=== PATIENT | female | born 1950 | race Caucasian/White ===

== ENCOUNTER 2017-07-16 10:47 | Outpatient (RCR) | payer MEDICARE ==
[~2017-07-16 10:47] MED LIST: AMLODIPINE BESYL5 MG PO; CARAFATE1 GM/10 ML PO; CEFTIN250 MG PO; DILTIAZEM ER60 MG PO; HYDROCHLOROTHIA25 MG PO; IRON CHEWS15 MG PO; LISINOPRIL20 MG PO; METOPROLOL TART50 MG PO; MORPHINE SULFAT30 M2 PO; PANTOPRAZOLE SO40 MG PO; ZOFRAN ODT4 MG SL
== END 2017-07-20 ==
LOC: PT 10:47
PROVIDERS: ATTEND Family Medicine
DX: M54.5 Low back pain (principal); M53.86 Other specified dorsopathies, lumbar region; R26.2 Difficulty in walking, not elsewhere classified; M62.81 Muscle weakness (generalized); M41.26 Other idiopathic scoliosis, lumbar region
CPT/HCPCS: 97010; 97035 ×2; 97110 ×3; 97140 ×2; 97162; G8978; G8979

== ENCOUNTER 2017-08-13 10:58 | Outpatient (RCR) | payer MEDICARE | END 2017-08-19 | LOC: PT 10:58 | PROVIDERS: ATTEND Family Medicine | DX: M54.5 Low back pain (principal); M53.86 Other specified dorsopathies, lumbar region; M41.26 Other idiopathic scoliosis, lumbar region; R26.2 Difficulty in walking, not elsewhere classified; M62.81 Muscle weakness (generalized) | CPT/HCPCS: 97035 ×3; 97110 ×3; G8978; G8979 ×2; G8980 ==

== ENCOUNTER → 2020-04-21 | Outpatient (CLI) | payer OTHER ==
[~2020-04-21] MED LIST changes: +COVID-19 VACC, MRNA(MODERNA)/PF 100 MCG/0.5 ML VIAL IM ONE
== END ==
LOC: VACCPMC 17:00
DX: Z23 Encounter for immunization (principal); Z20.828 Contact with and (suspected) exposure to other viral communicable diseases

== ENCOUNTER → 2020-05-23 | Outpatient (CLI) | payer OTHER | LOC: VACCPMC 09:18 | DX: Z23 Encounter for immunization (principal); Z20.822 Contact with and (suspected) exposure to COVID-19 ==